=== PATIENT | male | born 1955 ===

== ENCOUNTER 2017-07-07 10:36 | Inpatient (IN) | payer OTHER ==
[~2017-07-07] VITALS: Ht 177.8 cm; Wt 88.5 kg
[2017-07-07] MEDS ORDERED: ENALAPRIL MALEA10 MG PO (11:34)
[2017-07-07] MEDS ORDERED: ALBUTEROL S5 MG/1 ML IH (11:36)
[2017-07-07] MEDS ORDERED: ADVAIR HFA 230/12 GM IH (11:36)
== END 2017-07-14 10:23 | disposition home or self-care (01) | DRG 658 ==
LOC: O/R 07-12 05:22 → EDSEX 07-12 05:22 → SURH 07-12 07:00
PROVIDERS: Urology
PROC: 0TB64ZZ Excision of Right Ureter, Percutaneous Endoscopic Approach (ICD-10-PCS; 2017-07-12)
PROC: 0TT04ZZ Resection of Right Kidney, Percutaneous Endoscopic Approach (ICD-10-PCS; principal; 2017-07-12 07:00)
DX: C64.1 Malignant neoplasm of right kidney, except renal pelvis (principal); I10 Essential (primary) hypertension